=== PATIENT | female | born 1945 | race Caucasian/White ===

== ENCOUNTER → 2017-03-10 | Outpatient (REF) | payer MEDICARE ==
[~2017-03-10] MED LIST: ASPI1TAB PO; CLOP75TA2 PO; LISI-542 PO; METF1000 PO; SALI0.653; SIMV40TA2 PO; SITA50TAB PO; TRIA37.53 PO
[2017-03-10 13:58] LABS: BILIRUBIN,TOTAL 1.3 MG/DL (0.2-1.0); CREATININE FOR GFR 1.1 MG/DL (0.55-1.02); GLOMERULAR FILTRATION RATE 52.4 (>45); POTASSIUM SERUM 4.4 MEQ/L (3.5-5.1)
[2017-03-10 13:59] LABS: ALBUMIN 4.3 GM/DL (3.2-5.2); ALBUMIN/GLOBULIN RATIO 1.34 (1.00-1.93); TOTAL PROTEIN 7.5 GM/DL (6.4-8.2)
== END ==
LOC: M SFHCCLAY 08:08
PROVIDERS: ATTEND Family Medicine
DX: E78.2 Mixed hyperlipidemia (principal); E11.65 Type 2 diabetes mellitus with hyperglycemia; I10 Essential (primary) hypertension

== ENCOUNTER → 2017-08-30 | Outpatient (REF) | payer MEDICARE ==
[~2017-08-30] MED LIST changes: -METF1000 PO; +METF10004 PO; +SALI0.6523; -SALI0.653
[2017-08-30 12:22] LABS: ALBUMIN 3.9 GM/DL (3.2-5.2); ALBUMIN/GLOBULIN RATIO 1.26 (1.00-1.93); BILIRUBIN,TOTAL 1.1 MG/DL (0.2-1.0); CALCIUM LEVEL 9.4 MG/DL (8.8-10.2); CREATININE FOR GFR 1.03 MG/DL (0.55-1.02); GLOMERULAR FILTRATION RATE 56.4 (>39)
== END ==
LOC: M SFHCCLAY 07:55
PROVIDERS: ATTEND Family Medicine
DX: E78.2 Mixed hyperlipidemia (principal); E11.65 Type 2 diabetes mellitus with hyperglycemia; I10 Essential (primary) hypertension

== ENCOUNTER → 2018-03-21 | Outpatient (REF) | payer MEDICARE ==
[2018-03-21 11:51] LABS: ESTIMATED AVERAGE GLUCOSE 143 MG/DL (60-110); HEMOGLOBIN A1c 6.6 %
[2018-03-21 11:56] LABS: ALBUMIN 3.9 GM/DL (3.2-5.2); ALBUMIN/GLOBULIN RATIO 1.15 (1.00-1.93); ALKALINE PHOSPHATASE 75 U/L (45-117); ALT/SGPT 22 U/L (12-78); ANION GAP 7 MEQ/L (8-16); AST/SGOT 17 U/L (7-37); BILIRUBIN,TOTAL 1.1 MG/DL (0.2-1.0); BLOOD UREA NITROGEN 19 MG/DL (7-18); CALCIUM LEVEL 8.8 MG/DL (8.8-10.2); CARBON DIOXIDE LEVEL 27 MEQ/L (21-32); CHLORIDE LEVEL 105 MEQ/L (98-107); CHOLESTEROL LEVEL 118 MG/DL (<200); CHOLESTEROL RISK RATIO 2.313 (<5); CREATININE FOR GFR 1.09 MG/DL (0.55-1.30); GLOMERULAR FILTRATION RATE 52.8 (>39); GLUCOSE, FASTING 122 MG/DL (70-100); HDL CHOLESTEROL 51 MG/DL (>40); LDL CHOLESTEROL 48.4 MG/DL (<100); NON-HDL-C 67 MG/DL; POTASSIUM SERUM 4.2 MEQ/L (3.5-5.1); SODIUM LEVEL 139 MEQ/L (136-145); TOTAL PROTEIN 7.3 GM/DL (6.4-8.2); TRIGLYCERIDES LEVEL 93 MG/DL (<150)
[2018-03-21 12:23] LABS: MALB URINE SIEMENS 10.2 MG/L; MAU/CREAT RATIO 6.4 MCG/MG (0.0-30.0)
== END ==
LOC: M SFHCCLAY 08:10
DX: E78.2 Mixed hyperlipidemia (principal); E11.65 Type 2 diabetes mellitus with hyperglycemia; I10 Essential (primary) hypertension
CPT/HCPCS: 84443

== ENCOUNTER → 2018-09-22 | Outpatient (REF) | payer MEDICARE ==
[2018-09-22 11:39] LABS: CHOLESTEROL LEVEL 114 MG/DL (<200); HDL CHOLESTEROL 40 MG/DL (>40); LDL CHOLESTEROL 55 MG/DL (<100); NON-HDL-C 74 MG/DL; TRIGLYCERIDES LEVEL 96 MG/DL (<150)
[2018-09-22 12:15] LABS: MALB URINE SIEMENS < 5.0 MG/L; TOTAL PROTEIN,RANDOM URINE 7.3 MG/DL (0.0-12.0)
[2018-09-22 12:17] LABS: MAU/CREAT RATIO 6.6 MCG/MG (0.0-30.0)
[2018-09-22 12:40] LABS: ESTIMATED AVERAGE GLUCOSE 137 MG/DL (60-110); HEMOGLOBIN A1c 6.4 %
== END ==
LOC: M SFHCCLAY 08:13
DX: E11.8 Type 2 diabetes mellitus with unspecified complications (principal); E78.2 Mixed hyperlipidemia
CPT/HCPCS: 83036

== ENCOUNTER → 2019-03-27 | Outpatient (REF) | payer MEDICARE ==
[~2019-03-27] MED LIST changes: -ASPI1TAB PO; +ASPI81TA26 PO; -SALI0.6523; +SALI0.6528
[2019-03-27 11:54] LABS: HEMATOCRIT 41.6 % (36.0-47.0); HEMOGLOBIN 13.8 g/dl (12.0-15.5); MEAN CORPUSCULAR HEMOGLOBIN 29.7 pg (27.0-33.0); MEAN CORPUSCULAR HGB CONC 33.2 g/dl (32.0-36.5); MEAN CORPUSCULAR VOLUME 89.7 fl (80.0-96.0); PLATELET COUNT, AUTOMATED 271 10^3/uL (150-450); RED BLOOD COUNT 4.64 10^6/uL (4.00-5.40); WHITE BLOOD COUNT 6.8 10^3/uL (4.0-10.0)
[2019-03-27 12:08] LABS: ALBUMIN 4.2 GM/DL (3.2-5.2); BILIRUBIN,TOTAL 1.2 MG/DL (0.2-1.0); CHOLESTEROL RISK RATIO 2.584 (<5); CREATININE FOR GFR 1.22 MG/DL (0.55-1.30); GLOMERULAR FILTRATION RATE 46.3 (>39); POTASSIUM SERUM 3.7 MEQ/L (3.5-5.1); TOTAL PROTEIN 7.2 GM/DL (6.4-8.2)
[2019-03-27 12:28] LABS: HEMOGLOBIN A1c 6.5 %
[2019-03-27 12:34] LABS: MALB URINE SIEMENS 7.7 MG/L; MAU/CREAT RATIO 5.3 MCG/MG (0.0-30.0)
== END ==
LOC: M SFHCCLAY 07:09
PROVIDERS: ATTEND Nurse Practitioner Family
DX: I10 Essential (primary) hypertension (principal); E11.8 Type 2 diabetes mellitus with unspecified complications; E78.2 Mixed hyperlipidemia

== ENCOUNTER → 2019-09-21 | Outpatient (REF) | payer MEDICARE ==
[2019-09-21 13:27] LABS: HEMOGLOBIN A1c 6.9 %
== END ==
LOC: M SFHCCLAY 07:55
PROVIDERS: ATTEND Nurse Practitioner Family
DX: E11.8 Type 2 diabetes mellitus with unspecified complications (principal)

== ENCOUNTER → 2020-03-25 | Outpatient (REF) | payer MEDICARE ==
[~2020-03-25] MED LIST changes: -SIMV40TA2 PO; +SIMV40TA20 PO
[2020-03-25 12:45] LABS: HEMATOCRIT 40.8 % (36.0-47.0); HEMOGLOBIN 13.3 g/dl (12.0-15.5); MEAN CORPUSCULAR HEMOGLOBIN 29.7 pg (27.0-33.0); MEAN CORPUSCULAR HGB CONC 32.6 g/dl (32.0-36.5); MEAN CORPUSCULAR VOLUME 91.1 fl (80.0-96.0); PLATELET COUNT, AUTOMATED 287 10^3/uL (150-450); RED BLOOD COUNT 4.48 10^6/uL (4.00-5.40); WHITE BLOOD COUNT 5.9 10^3/uL (4.0-10.0)
[2020-03-25 12:52] LABS: ALBUMIN 4.1 GM/DL (3.2-5.2); BILIRUBIN,TOTAL 1.4 MG/DL (0.2-1.0); CALCIUM LEVEL 9.6 MG/DL (8.8-10.2); CREATININE FOR GFR 1.18 MG/DL (0.55-1.30); GLOMERULAR FILTRATION RATE 47.9 (>39); POTASSIUM SERUM 4.2 MEQ/L (3.5-5.1); TOTAL PROTEIN 7.2 GM/DL (6.4-8.2)
[2020-03-25 13:24] LABS: MALB URINE SIEMENS 6.7 MG/L; MAU/CREAT RATIO 6.3 MCG/MG (0.0-30.0)
== END ==
LOC: M SFHCCLAY 07:52
PROVIDERS: ATTEND Nurse Practitioner Family
DX: I10 Essential (primary) hypertension (principal); E11.8 Type 2 diabetes mellitus with unspecified complications; E78.2 Mixed hyperlipidemia

== ENCOUNTER → 2020-09-23 | Outpatient (REF) | payer MEDICARE ==
[2020-09-23 12:16] LABS: HEMOGLOBIN A1c 6.4 %
[2020-09-23 12:22] LABS: CREATININE, URINE 68.4 MG/DL; MALB URINE SIEMENS 15.3 MG/L; MAU/CREAT RATIO 22.3 MCG/MG (0.0-30.0)
[2020-09-23 12:36] LABS: CHOLESTEROL RISK RATIO 2.78 (<5); CREATININE FOR GFR 1.2 MG/DL (0.55-1.30); GLOMERULAR FILTRATION RATE 46.9 (>39)
== END ==
LOC: M SFHCCLAY 08:02
PROVIDERS: ATTEND Nurse Practitioner Family
DX: E11.8 Type 2 diabetes mellitus with unspecified complications (principal); I10 Essential (primary) hypertension; E78.5 Hyperlipidemia, unspecified

== ENCOUNTER → 2021-03-24 | Outpatient (REF) | payer MEDICARE ==
[~2021-03-24] MED LIST changes: -LISI-542 PO; +LISI-898 PO
[2021-03-24 12:18] LABS: HEMATOCRIT 42.8 % (36.0-47.0); HEMOGLOBIN 13.7 g/dl (12.0-15.5); MEAN CORPUSCULAR HEMOGLOBIN 28.7 pg (27.0-33.0); MEAN CORPUSCULAR VOLUME 89.5 fl (80.0-96.0); PLATELET COUNT, AUTOMATED 329 10^3/uL (150-450); RED BLOOD COUNT 4.78 10^6/uL (4.00-5.40); WHITE BLOOD COUNT 6.5 10^3/uL (4.0-10.0)
[2021-03-24 14:13] LABS: CREATININE, URINE 95.4 MG/DL; MALB URINE SIEMENS 7.2 MG/L; MAU/CREAT RATIO 7.5 MCG/MG (0.0-30.0)
[2021-03-24 15:10] LABS: ALBUMIN 4.1 GM/DL (3.2-5.2); BILIRUBIN,TOTAL 0.7 MG/DL (0.2-1.0); CALCIUM LEVEL 9.5 MG/DL (8.8-10.2); CHOLESTEROL RISK RATIO 2.903 (<5); CREATININE FOR GFR 1.25 MG/DL (0.55-1.30); GLOMERULAR FILTRATION RATE 44.7 (>39); POTASSIUM SERUM 4.7 MEQ/L (3.5-5.1); TOTAL PROTEIN 7.6 GM/DL (6.4-8.2)
[2021-03-24 18:35] LABS: HEMOGLOBIN A1c 6.8 %
== END ==
LOC: M SFHCCLAY 07:51
PROVIDERS: ATTEND Nurse Practitioner Family
DX: I10 Essential (primary) hypertension (principal); E11.8 Type 2 diabetes mellitus with unspecified complications; E78.5 Hyperlipidemia, unspecified

== ENCOUNTER → 2021-07-01 | Outpatient (REF) | payer MEDICARE ==
[2021-07-01 13:14] LABS: ALBUMIN 3.9 GM/DL (3.2-5.2); CALCIUM LEVEL 9.5 MG/DL (8.8-10.2); CREATININE FOR GFR 1.09 MG/DL (0.55-1.30); GLOMERULAR FILTRATION RATE 52.2 (>39); PHOSPHORUS LEVEL 3.6 MG/DL (2.5-4.9); POTASSIUM SERUM 4.4 MEQ/L (3.5-5.1)
[2021-07-01 13:59] LABS: HEMOGLOBIN A1c 6.8 %
== END ==
LOC: M SFHCCLAY 07:54
PROVIDERS: ATTEND Family Medicine
DX: E11.8 Type 2 diabetes mellitus with unspecified complications (principal); I10 Essential (primary) hypertension

== ENCOUNTER 2021-07-22 14:44 | Inpatient (IN) | payer MEDICARE ==
[~2021-07-22] VITALS: Ht 157.5 cm; Wt 68.0 kg
[2021-07-22 17:55] VITALS: BP 179/74
[2021-07-22] MEDS ORDERED: METF500T13 PO (18:52)
[2021-07-22] MEDS ORDERED: PLAV1TAB2 PO (18:52)
[2021-07-22] MEDS ORDERED: HOME MED LIST COMPLETE! XX SCH (18:55)
[2021-07-22] MEDS ORDERED: DEXTROSE 50% 50 ML SYRINGE IV PRN (19:10)
[2021-07-22] MEDS ORDERED: GLUCAGON INJ 1MG VIAL SC PRN (19:10)
[2021-07-22] MEDS ORDERED: GLUCOSE 4GM CHEW TABLET PO PRN (19:10)
--- NOTE | 2021-07-22 19:22 | HPEPDOC ---
[facility] Medical History & Physical Date of Admission Jul 22, 2021 Date of Service: Jul 22, 2021 Attending Physician: BRANDON WINCHESTER DO History and Physical CHIEF COMPLAINT: [76 y/o [facility] for hypon[facility], near syncope, incidentally covid+] HISTORY OF PRESENT ILLNESS: [This is a 76 y/p female with a pmh of cva, htn, dm2 who was transferred to our hospital from [facility] for higher level of care after presenting there for a near syncopal episode and being found to have hyponatremia and incidental positive covid test. Patient tells me that she feels fine besides some mild diarrhea that began 3-4 days ago. Patient states that she will have "several" episodes every morning and then be fine the rest of the day. Patient denies any blood in the stool. Patient also states that she has noticed some congestion beginning 2-3 days ago and was subsequently started on guaifenesin by her PCP. Patient states that as of this morning, she was in the shower and felt fine. However, she began to feel dizzy and thus got out of the shower and laid down on the floor. Patient denies falling. Patient denies any chest pain, palpitations, dark stool, hematochezia, n/v, fevers, headaches, chills, lower leg edema.] PAST MEDICAL HISTORY: 1. [See HPI PAST SURGICAL HISTORY: 1. [Tonsillectomy]. 2. [Unspec. hernia repair]. 3. [C section]. SOCIAL HISTORY: Tobacco use:[denies] ETOH: [denies] Illicit drug use: [denies] FAMILY HISTORY: Reviewed - none pertinent ALLERGIES: Please see below. REVIEW OF SYSTEMS: CONSTITUTIONAL: [Admits to fatigue. Denies fevers, chills]. HEENT: [Admits to congestion. Denies headache, sore throat]. CARDIOVASCULAR: [Denies chest pain, palpitations]. RESPIRATORY: [Denies sob, cough]. GASTROINTESTINAL: [See HPI]. GENITOURINARY: [Denies dysuria]. SKIN: [Denies rash]. MUSCULOSKELETAL: [Denies acute joint/back pain]. NEUROLOGICAL: [See HPI]. ENDOCRINE: [Hx of DM]. HEMATOLOGIC/LYMPHATIC: [Denies hx of vte]. HOME MEDICATIONS: Please see below. PHYSICAL EXAMINATION: VITAL SIGNS: Please see below. GENERAL APPEARANCE: [This is a pleasant 76 y/o female who is alert and oriented to all questioning. She does not appear to be in any acute distress.]. HEENT: [No mass or lesion. EOMI. No scleral icterus. Nares patent. Oral mucosa moist.]. CARDIOVASCULAR: [Regular rate, rhythm. No murmurs, rubs, gallops]. LUNGS: [Good air flow b/l. No wheezing, rales, rhonchi.]. ABDOMEN: [Soft, nontender]. MUSCULOSKELETAL: [No joint deformity noted]. EXTREMITIES: [No peripheral edema appreciated. No overlying skin changes. Pulses intact.]. NEUROLOGICAL: [Speech clear. A+Ox3. No focal deficits.]. PSYCHIATRIC: [Mood and affect appear appropriate]. LABORATORY DATA: See below. IMAGING: [CT Head: performed at [facility], radiology report reviewed by myself, found to be negative of any acute changes. CXR: performed at [facility], radiology report reviewed by myself, found to be negative of any acute changes.] MICROBIOLOGY: Please see below. ASSESSMENT: [This is a 76 y/p female with a pmh of cva, htn, dm2 who was transferred to our hospital from [facility] for higher level of care after presenting there for a near syncopal episode and being found to have hyponatremia and incidental positive covid test.]. . PLAN: 1. [COVID - very mild infection, patient saturating fine on RA - inflammatory markers only mildly elevated - will not be beginning remdesevir/dexamethasone protocols at this point - will monitor o2 levels - day team can consider outpatient infusion in the am if other issues are resolved - admit to covid unit under obs 2. Near Syncope - patient states she felt mildly dizzy and symptoms resolved after laying down on her bathroom floor - potentially orthostatic vs. simply dehydration vs. bppv - ct head [facility] - telemetry monitoring overnight 3. Hyponatremia - Repeat Na found to be 129 in our hospital - likely 2/2 covid gi symptoms, hctz - will hold hctz - will give ns overnight, recheck in the am 4. ?Supraventricular bigeminy - [facility] shows provider as documenting abnormal ekg rhythm of supraventricular bigeminy. - At this time i suspect this was sinus arrhythmia. Repeat EKG performed by our staff showing NSR - telemetry monitoring 5. DM - sliding scale coverage - hypoglycemic protocol 6. HTN - continue lisinopril - holding hctz as stated - day team can consider increasing lisinopril dosing if patients bp remains elevated 7. Hx of CVA - continue asa, plavix 8. HLD - continue simvastatin DVT prophylaxis - adding lovenox to current antiplatelets d/t covid infection]. Vital Signs Vital Signs Date Time Temp Pulse Resp B/P (MAP) Pulse Ox O2 Delivery O2 Flow Rate FiO2 07/22/21 17:55 99.6 79 17 179/74 (109) 96 Room Air Home Medications Scheduled Aspirin (Aspirin EC) 81 Mg Tab, 81 MG PO DAILY Clopidogrel Bisulfate (Plavix) 75 Mg Tablet, 75 MG PO DAILY Lisinopril (Lisinopril) 5 Mg Tab, 5 MG PO DAILY Metformin HCl (Metformin HCl) 500 Mg Tablet, 1,000 MG PO BID Simvastatin (Simvastatin) 40 Mg Tab, 40 MG PO DAILY Sitagliptin (Januvia) 50 Mg Tab, 50 MG PO DAILY Triamterene/Hydrochlorothiazid (Triamterene-Hctz 37.5-25 mg Cp) 1 Cap Cap, 1 CAP PO DAILY Allergies Coded Allergies: No Known Allergies (Verified Allergy, Unknown, 07/22/21) A-FIB/CHADSVASC A-FIB History Current/History of A-Fib/PAF?: No LAZARO COSTA Jul 22, 2021 19:22
[2021-07-22 19:47] LABS: BASO % 0.3 % (0.0-1.0); HEMATOCRIT 36.2 % (36.0-47.0); HEMOGLOBIN 12.4 g/dl (12.0-15.5); LYMPH # 0.8 10^3/uL (1.5-5.0); LYMPH % 23.6 % (24.0-44.0); MEAN CORPUSCULAR HEMOGLOBIN 28.6 pg (27.0-33.0); MEAN CORPUSCULAR HGB CONC 34.3 g/dl (32.0-36.5); MEAN CORPUSCULAR VOLUME 83.6 fl (80.0-96.0); MONO # 0.4 10^3/uL (0.0-0.8); NEUTROPHILS # 2.1 10^3/uL (1.5-8.5); NEUTROPHILS % 64.8 % (36.0-66.0); PLATELET COUNT, AUTOMATED 224 10^3/uL (150-450); RED BLOOD COUNT 4.33 10^6/uL (4.00-5.40); WHITE BLOOD COUNT 3.2 10^3/uL (4.0-10.0)
[2021-07-22 19:58] LABS: PROTHROMBIN TIME 13.6 SECONDS (12.7-14.5)
[2021-07-22 19:59] LABS: PARTIAL THROMBOPLASTIN TIME 34.6 SECONDS (25.9-37.0)
[2021-07-22 20:02] LABS: D-DIMER QUANT 981.9 ng/ml (<500)
[2021-07-22 20:16] LABS: ALBUMIN 3.6 GM/DL (3.2-5.2); ALT/SGPT 36 U/L (12-78); BILIRUBIN,DIRECT 0.3 MG/DL (0.0-0.2); BILIRUBIN,TOTAL 0.9 MG/DL (0.2-1.0); BLOOD UREA NITROGEN 15 MG/DL (7-18); C REACTIVE PROTEIN QUANTITATIV 1.03 MG/DL (0.00-0.30); CALCIUM LEVEL 8.9 MG/DL (8.8-10.2); CARBON DIOXIDE LEVEL 25 MEQ/L (21-32); CHLORIDE LEVEL 96 MEQ/L (98-107); CPK CREATINE PHOSPHOKINASE 397 U/L (26-192); CREATININE FOR GFR 1.03 MG/DL (0.55-1.30); FERRITIN 149 NG/ML (8-252); GLOMERULAR FILTRATION RATE 55.8 (>39); GLUCOSE, FASTING 133 MG/DL (70-100); LDH LACTATE DEHYDROGENASE 195 U/L (84-246); MAGNESIUM LEVEL 1.8 MG/DL (1.8-2.4); NT-PRO BNP 208 PG/ML (<125); POTASSIUM SERUM 4.2 MEQ/L (3.5-5.1); SODIUM LEVEL 129 MEQ/L (136-145); TOTAL PROTEIN 6.9 GM/DL (6.4-8.2); TROPONIN I < 0.02 NG/ML (< 0.10)
[2021-07-22 20:30] VITALS: BP 157/68
[2021-07-22] MEDS: NS 1,000 ML IV SCH (20:39)
[2021-07-22] MEDS: HumaLOG INSULIN (NovoLOG) PER UNIT SC SCH (20:45)
[2021-07-23 05:00] VITALS: BP 145/65
[2021-07-23] MEDS: NS 1,000 ML IV SCH ×2 (06:32→17:02)
[2021-07-23 07:02] LABS: BASO % 0.3 % (0.0-1.0); HEMATOCRIT 34.4 % (36.0-47.0); HEMOGLOBIN 11.9 g/dl (12.0-15.5); LYMPH # 0.9 10^3/uL (1.5-5.0); LYMPH % 23.3 % (24.0-44.0); MEAN CORPUSCULAR HEMOGLOBIN 28.9 pg (27.0-33.0); MEAN CORPUSCULAR HGB CONC 34.6 g/dl (32.0-36.5); MEAN CORPUSCULAR VOLUME 83.5 fl (80.0-96.0); MONO # 0.4 10^3/uL (0.0-0.8); MONO % 10.3 % (2.0-8.0); NEUTROPHILS # 2.5 10^3/uL (1.5-8.5); NEUTROPHILS % 65.8 % (36.0-66.0); PLATELET COUNT, AUTOMATED 205 10^3/uL (150-450); RED BLOOD COUNT 4.12 10^6/uL (4.00-5.40); WHITE BLOOD COUNT 3.8 10^3/uL (4.0-10.0)
[2021-07-23 07:30] LABS: CALCIUM LEVEL 8.2 MG/DL (8.8-10.2); GLOMERULAR FILTRATION RATE 57.7 (>39); MAGNESIUM LEVEL 1.7 MG/DL (1.8-2.4); POTASSIUM SERUM 3.4 MEQ/L (3.5-5.1)
[2021-07-23] MEDS: CLOPIDOGREL 75 MG TAB PO SCH (08:32)
[2021-07-23] MEDS: lisinopriL 5 MG TAB PO SCH (08:32)
[2021-07-23] MEDS: ENOXAPARIN 30MG/0.3ML SYRINGE (J1650 PER 10MG) SC SCH (08:32)
[2021-07-23] MEDS: ASPIRIN 81MG ENTERIC TABLET PO SCH (08:32)
[2021-07-23] MEDS: SIMVASTATIN 40 MG TAB PO SCH (08:33)
[2021-07-23] MEDS: HumaLOG INSULIN (NovoLOG) PER UNIT SC SCH ×4 (08:34→20:51)
[2021-07-23 08:51] VITALS: BP_SYST 155; BP_SYST 158; BP_SYST 159; BP_DIAS 65; BP_DIAS 67; BP_DIAS 68
[2021-07-23] MEDS: POTASSIUM CHLORIDE 10 MEQ SR TABLET PO SCH ×2 (09:15→13:22)
--- NOTE | 2021-07-23 10:50 | IPNPDOC ---
Text Note Date of Service The patient was seen on 07/23/21. NOTE Subjective: Patient is a 76-year-old female who presented to the hospital [facility] as a direct transfer from [facility] due to syncope and COVID-19 infection. Patient states that over the past few days, she had began feeling worse. She went to her doctor's office and was told she had a sinus infection. Patient says she went home and has not been eating very much over the past few days. Patient states she took a shower it when she stood up from the shower she felt dizzy and collapsed to the floor. Patient says when she did this, she did have diarrhea. Patient's been having multiple rounds of diarrhea over the past few days as well. Patient states that she was feeling little bit better this morning was able to eat but does not feel like she is ready to go home. Patient is otherwise doing well at this time denies any shortness of breath or chest pain. Review of systems: General: Patient denies fevers HEENT: Patient denies headaches Cardiovascular: Patient denies chest pain Respiratory: Patient denies shortness of breath, cough GI: Patient denies abdominal pain, nausea, vomiting, diarrhea : Patient denies increased frequency or pain with urination Extremities: Patient denies swelling or pain in extremities Neurological: Patient denies numbness or tingling in legs Physical exam: Vitals: See below General: Alert and oriented female patient who was sitting in the chair I walked in the room. Patient not appear to be in any acute distress. HEENT: Normocephalic, atraumatic, moist mucous membranes. Neck: No lymphadenopathy or thyromegaly Cardiac: Regular rate and rhythm, no murmurs, normal S1, normal S2 Pulm: Clear to auscultation bilaterally. No wheezes, rhonchi, rales Abd: Nondistended, nontender to palpation, normal bowel sounds Ext: No edema bilateral lower extremities Labs: See below Imaging: No new imaging has been performed. Assessment/plan: 76-year-old female with past medical history of CVA, hypertension, type 2 diabetes who was transferred to our hospital from [facility] due to presenting for syncopal episode and found to be hyponatremic. 1. Syncope/presyncope. Patient states she felt mildly dizzy and the symptoms resolved after she lay down in the bathroom floor. This could be secondary to orthostasis which is resolved as she had orthostatic vitals done this morning which were negative. Patient may also be dehydrated due to having diarrhea and not eating very much. CT head was negative at [facility] and telemetry has been negative so far. 2. Hyponatremia. Patient's sodium this morning was 130 although she did eat a better breakfast this morning. We will recheck this at noon time today. Malissa high is currently on IV fluids and her hydrochlorothiazide has been held. 3. COVID-19. Patient is currently saturating on room air. We will continue to follow the patient and if she begins to require oxygen, patient can be started on remdesivir and steroids. 4. Questionable supraventricular bigeminy. According to records from her hospital, she had an abnormal EKG rhythm with supraventricular bigeminy. Repeat EKG showed normal sinus rhythm. Telemetry has not shown this as well. 5. Type 2 diabetes mellitus. Continue sliding scale coverage. 6. Hypertension. Continue lisinopril. We may need to increase lisinopril if her blood pressure is elevated. 7. History of CVA. Continue aspirin Plavix. 8. Hyperlipidemia. Continue simvastatin. DVT Prophylaxis: Lovenox Disposition: Pending improvement in sodium, possible discharge tomorrow VS,Nayely, I+O VS, Nayely, I+O Laboratory Tests 07/22/21 19:34 07/23/21 06:48 Vital Signs Date Time Temp Pulse Resp B/P (MAP) Pulse Ox O2 Delivery O2 Flow Rate FiO2 07/23/21 08:51 72 158/65 (96) 78 159/68 (98) 90 155/67 (96) 07/23/21 05:00 98.1 18 97 Room Air I&O- Last 24 Hours up to 6 AM 07/23/21 06:00 Intake Total 1350 ml Output Total 2150 ml Balance -800 ml ION ARDON DO Jul 23, 2021 10:50
[2021-07-23] MEDS ORDERED: POTASSIUM CHLORIDE 10 MEQ SR TABLET PO SCH (13:30)
[2021-07-23 13:44] LABS: CREATININE FOR GFR 1.05 MG/DL (0.55-1.30); GLOMERULAR FILTRATION RATE 54.5 (>39); POTASSIUM SERUM 4.1 MEQ/L (3.5-5.1)
[2021-07-23 14:00] VITALS: BP 133/82
--- NOTE | 2021-07-23 15:09 | ECGEPIP ---
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
[2021-07-23 20:00] VITALS: BP 151/74
[2021-07-23 21:14] VITALS: O2SAT 97
[2021-07-24] MEDS: NS 1,000 ML IV SCH (02:23)
[2021-07-24 09:00] VITALS: BP 164/72
[2021-07-24 09:34] LABS: BASO % 0.3 % (0.0-1.0); EOS % 0.3 % (0.0-3.0); HEMATOCRIT 36.6 % (36.0-47.0); HEMOGLOBIN 12.1 g/dl (12.0-15.5); LYMPH # 0.8 10^3/uL (1.5-5.0); LYMPH % 20.2 % (24.0-44.0); MEAN CORPUSCULAR HEMOGLOBIN 28.3 pg (27.0-33.0); MEAN CORPUSCULAR HGB CONC 33.1 g/dl (32.0-36.5); MEAN CORPUSCULAR VOLUME 85.5 fl (80.0-96.0); MONO # 0.3 10^3/uL (0.0-0.8); MONO % 6.3 % (2.0-8.0); NEUTROPHILS # 2.9 10^3/uL (1.5-8.5); NEUTROPHILS % 72.6 % (36.0-66.0); PLATELET COUNT, AUTOMATED 218 10^3/uL (150-450); RED BLOOD COUNT 4.28 10^6/uL (4.00-5.40)
[2021-07-24 09:45] LABS: PROTHROMBIN TIME 13.6 SECONDS (12.7-14.5)
[2021-07-24 09:46] LABS: PARTIAL THROMBOPLASTIN TIME 33.5 SECONDS (25.9-37.0)
[2021-07-24 09:51] VITALS: BP 145/65
[2021-07-24] MEDS: CLOPIDOGREL 75 MG TAB PO SCH (09:51)
[2021-07-24] MEDS: HumaLOG INSULIN (NovoLOG) PER UNIT SC SCH (09:51)
[2021-07-24] MEDS: lisinopriL 5 MG TAB PO SCH (09:51)
[2021-07-24] MEDS: ENOXAPARIN 30MG/0.3ML SYRINGE (J1650 PER 10MG) SC SCH (09:51)
[2021-07-24] MEDS: ASPIRIN 81MG ENTERIC TABLET PO SCH (09:51)
[2021-07-24] MEDS: SIMVASTATIN 40 MG TAB PO SCH (09:51)
[2021-07-24 10:07] LABS: ALBUMIN 3.2 GM/DL (3.2-5.2); ALT/SGPT 39 U/L (12-78); BILIRUBIN,DIRECT 0.2 MG/DL (0.0-0.2); BILIRUBIN,TOTAL 0.7 MG/DL (0.2-1.0); BLOOD UREA NITROGEN 11 MG/DL (7-18); CARBON DIOXIDE LEVEL 25 MEQ/L (21-32); CHLORIDE LEVEL 103 MEQ/L (98-107); CPK CREATINE PHOSPHOKINASE 401 U/L (26-192); FERRITIN 149 NG/ML (8-252); GLOMERULAR FILTRATION RATE 51.7 (>39); GLUCOSE, FASTING 227 MG/DL (70-100); LDH LACTATE DEHYDROGENASE 197 U/L (84-246); MAGNESIUM LEVEL 1.5 MG/DL (1.8-2.4); NT-PRO BNP 490 PG/ML (<125); POTASSIUM SERUM 3.9 MEQ/L (3.5-5.1); SODIUM LEVEL 134 MEQ/L (136-145); TOTAL PROTEIN 6.5 GM/DL (6.4-8.2); TROPONIN I < 0.02 NG/ML (< 0.10)
[2021-07-24 11:19] VITALS: O2SAT 96
--- NOTE | 2021-07-24 14:11 | DS.PDOC ---
Discharge Summary General Date of Admission Jul 23, 2021 at 14:28 Date of Discharge 07/24/2021 Primary Care Physician: SARITHA FONG DO Attending Physician: ION ARDON DO Discharge Summary PROCEDURES PERFORMED DURING STAY: None. ADMITTING DIAGNOSES: 1. COVID-19. 2. Near syncope 3. Hyponatremia 4. Supraventricular bigeminy 5. Diabetes mellitus 6. Hypertension 7. History of CVA 8. Hyperlipidemia DISCHARGE DIAGNOSES: 1. COVID-19. 2. Near syncope 3. Hyponatremia, improved 4. Type 2 diabetes 5. Hypertension 6. History of CVA 7. Hyperlipidemia COMPLICATIONS/CHIEF COMPLAINT: Syncope, Hyponatremia, Covid+. HISTORY OF PRESENT ILLNESS: Patient is a 76-year-old female who presented to [facility] from [facility] for higher level of care after the patient presented there for near syncopal episode and was found to have hypo natremia and incidental positive Covid test. Patient tells me that she is been feeling fine besides some mild diarrhea that began 3 to 4 days ago. Patient states that she will have several episodes every morning and then had been fine for the rest of the day. Patient denies any blood in the stool. Patient has noted some congestion beginning 2 to 3 days ago and was subsequently started on guaifenesin by her PCP. Patient states that as of this morning she was in the shower and felt fine however she began to feel dizzy when she got out and lay down on the floor. Patient denies falling. Patient denies any chest pain palpitations or dark stool.. HOSPITAL COURSE: Patient did well throughout her hospitalization and remained on room air the entire time. Patient's hyponatremia did improve with some IV fluid hydration as well as the patient's oral intake increasing. On hospitalization day 1, patient was still feeling unsteady on her feet and was having some difficulty getting around. Patient lives at home alone so she was not confident in her ability to go home. On hospitalization day 2, patient was feeling much better and the patient was deemed ready for discharge. Patient had e chocardiogram performed which was pending, her hyponatremia had improved to a sodium level 134 and the patient was deemed ready for discharge. Patient was discharged home from the hospital on 07/24/2021. DISCHARGE MEDICATIONS: Please see below. ALLERGIES: Please see below. PHYSICAL EXAMINATION ON DISCHARGE: VITAL SIGNS: Please see below. General: Alert and oriented female patient who was sitting up in bed when I walked in the room. Patient did not appear to be in any acute distress. HEENT: Normocephalic, atraumatic, moist mucous membranes. Neck: No lymphadenopathy or thyromegaly Cardiac: Regular rate and rhythm, no murmurs, normal S1, normal S2 Pulm: Clear to auscultation bilaterally. No wheezes, rhonchi, rales Abd: Nondistended, nontender to palpation, normal bowel sounds Ext: No edema bilateral lower extremities LABORATORY DATA: Please see below. IMAGING: No imaging was performed to our hospital during the admission however, patient did have a CT of the head performed at [facility] and was found to be negative for any acute changes according to the H&P author who reviewed the radiology report. PROGNOSIS: Good ACTIVITY: As tolerated. DIET: Regular DISCHARGE PLAN: Discharge home, home care referral was offered to the patient but she declined DISPOSITION: 01 Home, Self-Care. DISCHARGE INSTRUCTIONS: 1. Follow-up with your primary care provider within 3 to 5 days of discharge. 2. Return to the emergency department if your symptoms worsen ITEMS TO FOLLOWUP ON ON OUTPATIENT: 1. Echocardiogram report. DISCHARGE CONDITION: Stable. TIME SPENT ON DISCHARGE: 35 minutes. Vital Signs/I&Os Vital Signs Date Time Temp Pulse Resp B/P (MAP) Pulse Ox O2 Delivery O2 Flow Rate FiO2 07/24/21 11:19 96 Room Air 07/24/21 09:51 145/65 07/24/21 09:00 98.3 69 18 I&O- Last 24 Hours up to 6 AM 07/24/21 05:59 Intake Total 4410 ml Output Total 3400 ml Balance 1010 ml Laboratory Data Labs 24H Laboratory Tests 2 07/23/21 16:57: Bedside Glucose (Misc Panel) 159H 07/23/21 20:23: Bedside Glucose (Misc Panel) 151H 07/24/21 07:49: Bedside Glucose (Misc Panel) 124H 07/24/21 09:21: Immature Granulocyte % (Auto) 0.3, Neutrophils (%) (Auto) 72.6H, Lymphocytes (%) (Auto) 20.2L, Monocytes (%) (Auto) 6.3, Eosinophils (%) (Auto) 0.3, Basophils (%) (Auto) 0.3, Neutrophils # (Auto) 2.9, Lymphocytes # (Auto) 0.8L, Monocytes # (Auto) 0.3, Eosinophils # (Auto) 0.0, Basophils # (Auto) 0.0, Nucleated Red Blood Cells % (auto) 0.0, Prothrombin Time 13.6, Prothromb Time International Ratio 1.00, Activated Partial Thromboplast Time 33.5, Fibrinogen 438, Anion Gap 6L, Glomerular Filtration Rate 51.7, Calcium Level 8.0L, Magnesium Level 1.5L, Ferritin 149, Total Bilirubin 0.7, Direct Bilirubin 0.2, Aspartate Amino Transf (AST/SGOT) 34, Alanine Aminotransferase (ALT/SGPT) 39, Alkaline Phosphatase 88, Lactate Dehydrogenase 197, Total Creatine Kinase 401H, Troponin I < 0.02, DM-Xio-Y-Type Natriuretic Peptide 490H, Total Protein 6.5, Albumin 3.2, Albumin/Globulin Ratio 1.0L, Procalcitonin <0.05 CBC/BMP Laboratory Tests 07/24/21 09:21 FSBS Laboratory Tests Test 07/23/21 16:57 07/23/21 20:23 07/24/21 07:49 Range/Units Bedside Glucose (Misc Panel) 159 151 124 83-110 MG/DL Discharge Medications Scheduled Aspirin (Aspirin EC) 81 Mg Tab, 81 MG PO DAILY, (Reported) Clopidogrel Bisulfate (Plavix) 75 Mg Tablet, 75 MG PO DAILY, (Reported) Lisinopril (Lisinopril) 5 Mg Tab, 5 MG PO DAILY, (Reported) Metformin HCl (Metformin HCl) 500 Mg Tablet, 1,000 MG PO BID, (Reported) Simvastatin (Simvastatin) 40 Mg Tab, 40 MG PO DAILY, (Reported) Sitagliptin (Januvia) 50 Mg Tab, 50 MG PO DAILY, (Reported) Allergies Coded Allergies: No Known Allergies (Verified Allergy, Unknown, 07/22/21) ION ARDON DO Jul 24, 2021 14:11
--- NOTE | 2021-07-27 11:06 | ECHO ---
ECHOCARDIOGRAM DATE OF PROCEDURE: 07/24/2021 Age: 76 Gender: Female Height: 157 cm Weight: 68 kg PATIENT LOCATION: Room 4106. REFERRING PROVIDER: Guero Gerardo M.D. REASON FOR THE TESTING: Syncope, COVID-19 MEASUREMENTS: 2D Measurements: IVS 1.1 cm LV 4.1 cm LVPW 1.3 cm LA 3.5 cm Aorta 3.3 cm IVC 1.5 cm Doppler Measurements: Peak velocity across the aortic valve 1.7 m/sec Peak velocity across the LVOT 1.3 m/sec Peak gradient across the aortic valve 12 mmHg Mean gradient across the aortic valve 6 mmHg Mitral E 0.94 Mitral A 1.1 with a ratio of 0.8 Maximum tricuspid valve velocity 2.3 m/sec 2D COMMENTS: 1. Normal left ventricular size with mildly increased left ventricular wall thickness and a normal global left ventricular systolic function. The estimated left ventricular systolic ejection fraction is 60-65%. 2. Normal left atrium. Normal right atrium and right ventricle. 3. The atrial septum appeared to be normal without evidence of defect or shunt. 4. Normal aortic root. 5. No pericardial effusion seen. 6. Mildly calcified aortic valve with normal leaflet excursion. Mildly calcified mitral annulus with normal anterior mitral valve leaflet motion. Normal tricuspid valve and pulmonic valve. The proximal pulmonary artery branches were not well visualized. 7. The inferior vena cava was normal in size. Central venous pressure is probably normal. DOPPLER: It detects moderate aortic regurgitation, mild to moderate mitral regurgitation and mild tricuspid regurgitation, as well as mild pulmonic regurgitation. The calculated pulmonic artery systolic pressure varies between 30-40 mmHg. Abnormal relaxation pattern was noted across the mitral valve leaflets as well as the mitral annulus, consistent with features of grade 1 left ventricular diastolic dysfunction. IMPRESSION: 1. Normal global left ventricular systolic function. There are some features of grade 1 left ventricular diastolic dysfunction manifested by abnormal relaxation. 2. Aortic valve sclerosis with moderate aortic regurgitation and trivial aortic stenosis. 3. Mitral annulus calcification with mild to moderate mitral regurgitation. 4. Mild tricuspid regurgitation with mild pulmonary hypertension. 5. Mild pulmonic regurgitation. 6. Global longitudinal strain/GLS was calculated at 16%, relatively normal.
== END 2021-07-24 13:06 | disposition home or self-care (01) | DRG 178 ==
LOC: INTOOBSV 17:55 → M 4MAIN 17:55 → OBSVTOIN 07-23 14:28
PROVIDERS: ADMIT Family Medicine; ATTEND Family Medicine
DX: U07.1 COVID-19 (principal); E87.1 Hypo-osmolality and hyponatremia; Z86.73 Personal history of transient ischemic attack (TIA), and cerebral infarction without residual deficits; I10 Essential (primary) hypertension; E11.9 Type 2 diabetes mellitus without complications; R00.8 Other abnormalities of heart beat; E78.5 Hyperlipidemia, unspecified; Z79.82 Long term (current) use of aspirin; Z79.899 Other long term (current) drug therapy; R55 Syncope and collapse

== ENCOUNTER → 2021-08-28 | Outpatient (REF) | payer MEDICARE ==
[~2021-08-28] MED LIST changes: +METF500T13 PO; +PLAV1TAB2 PO
[2021-08-28 17:58] LABS: CALCIUM LEVEL 9.6 MG/DL (8.8-10.2); CREATININE FOR GFR 1.03 MG/DL (0.55-1.30); GLOMERULAR FILTRATION RATE 55.8 (>39); POTASSIUM SERUM 4.4 MEQ/L (3.5-5.1)
== END ==
LOC: M SFHCCLAY 13:31
PROVIDERS: ATTEND Family Medicine
DX: I11.9 Hypertensive heart disease without heart failure (principal)
CPT/HCPCS: 80048; G0463

== ENCOUNTER → 2021-10-29 | Outpatient (REF) | payer MEDICARE ==
[~2021-10-29] MED LIST changes: -LISI-898 PO; +LISI5TAB11 PO
[2021-10-29 16:19] LABS: CALCIUM LEVEL 9.5 MG/DL (8.8-10.2); CREATININE FOR GFR 1.02 MG/DL (0.55-1.30); GLOMERULAR FILTRATION RATE 56.4 (>39); POTASSIUM SERUM 4.8 MEQ/L (3.5-5.1)
== END ==
LOC: M SFHCCLAY 10:15
PROVIDERS: ATTEND Family Medicine
DX: I11.9 Hypertensive heart disease without heart failure (principal)
CPT/HCPCS: 80048; G0463

== ENCOUNTER → 2022-01-06 | Outpatient (REF) | payer MEDICARE ==
[2022-01-06 12:32] LABS: CALCIUM LEVEL 9.4 MG/DL (8.8-10.2); CHOLESTEROL RISK RATIO 2.61 (<5); CREATININE FOR GFR 1.11 MG/DL (0.55-1.30); GLOMERULAR FILTRATION RATE 51.2 (>39); POTASSIUM SERUM 4.4 MEQ/L (3.5-5.1)
[2022-01-06 12:37] LABS: MALB URINE SIEMENS 41.4 MG/L; MAU/CREAT RATIO 33.3 MCG/MG (0.0-30.0)
[2022-01-06 12:44] LABS: HEMOGLOBIN A1c 6.6 %
== END ==
LOC: M SFHCCLAY 08:12
PROVIDERS: ATTEND Family Medicine
DX: E11.8 Type 2 diabetes mellitus with unspecified complications (principal); I11.9 Hypertensive heart disease without heart failure; E78.5 Hyperlipidemia, unspecified

== ENCOUNTER → 2022-04-07 | Outpatient (REF) | payer MEDICARE ==
[2022-04-08 12:11] LABS: CALCIUM LEVEL 9.5 MG/DL (8.8-10.2); CREATININE FOR GFR 1.16 MG/DL (0.55-1.30); GLOMERULAR FILTRATION RATE 48.6 (>39); POTASSIUM SERUM 4.2 MEQ/L (3.5-5.1)
== END ==
LOC: M SFHCCLAY 13:56
PROVIDERS: ATTEND Family Medicine
DX: I11.9 Hypertensive heart disease without heart failure (principal)

== ENCOUNTER → 2023-01-15 | Outpatient (REF) | payer MEDICARE ==
[~2023-01-15] MED LIST changes: +CLOP75TA99 PO; -PLAV1TAB2 PO; -TRIA37.53 PO; +TRIA37.577 PO
[2023-01-15 17:34] LABS: ALKALINE PHOSPHATASE 89 U/L (46-116); ALT/SGPT 40 U/L (7.0-40); AST/SGOT 36 U/L (<34); BILIRUBIN,TOTAL 0.8 MG/DL (0.3-1.2); BLOOD UREA NITROGEN 22 MG/DL (9-23); CALCIUM LEVEL 9.1 MG/DL (8.3-10.6); CARBON DIOXIDE LEVEL 30 MMOL/L (20-31); CHLORIDE LEVEL 103 MMOL/L (98-107); CHOLESTEROL LEVEL 129 MG/DL (<200); CHOLESTEROL RISK RATIO 2.65 (<5); CREATININE FOR GFR 0.92 MG/DL (0.55-1.30); GLOMERULAR FILTRATION RATE > 60.0 (>39); GLUCOSE, FASTING 148 MG/DL (74-106); HDL CHOLESTEROL 48.5 MG/DL (>40); LDL CHOLESTEROL 52.9 MG/DL (<100); NON-HDL-C 81 MG/DL; POTASSIUM SERUM 4.3 MMOL/L (3.5-5.1); SODIUM LEVEL 139 MMOL/L (136-145); TOTAL PROTEIN 7.1 G/DL (5.7-8.2); TRIGLYCERIDES LEVEL 138 MG/DL (<150)
[2023-01-15 17:45] LABS: HEMOGLOBIN A1c 7.3 % (4.0-6.0)
== END ==
LOC: M SFHCCLAY 14:06
PROVIDERS: ATTEND Nurse Practitioner Family
DX: E11.8 Type 2 diabetes mellitus with unspecified complications (principal); E78.5 Hyperlipidemia, unspecified; I11.9 Hypertensive heart disease without heart failure

== ENCOUNTER → 2025-01-31 | Outpatient (REF) | payer MEDICARE ==
[2025-01-31 17:35] LABS: HEMOGLOBIN A1c 6.8 % (4.0-6.0)
== END ==
LOC: M SFHCCLAY 11:17
PROVIDERS: ATTEND Nurse Practitioner Family
DX: E11.8 Type 2 diabetes mellitus with unspecified complications (principal)